=== PATIENT | male | born 2005 | race Caucasian/White ===

== ENCOUNTER 2025-08-01 00:12 | Emergency (ER) | payer OTHER, SELFPAY ==
--- NOTE | 2025-08-01 00:42 | DI.RAD.S_ITS ---
PROCEDURE: XR CHEST 2V INDICATIONS: chest pain TECHNIQUE: 2 views of the chest were acquired. COMPARISON: None. FINDINGS: Surgical changes and devices: None. Lungs and pleura: Lungs are clear. No pleural effusions or pneumothorax. Mediastinum: Mediastinal contours are normal. Heart size is normal. Bones and chest wall: No suspicious bony abnormalities. Soft tissues appear unremarkable. IMPRESSION: No acute cardiopulmonary abnormality is seen. Approved by: Georgette Constantino M.D.,Ph.D. on 08/01/2025 at 1:11
[2025-08-01 01:15] VITALS: BP 134/76; PULSE 58; RESP 16; TEMP 36.7; O2SAT 98; BMI 27.1
--- NOTE | 2025-08-01 01:29 | ED.CHESTPAIN ---
HPI - Chest Pain General Chief Complaint: Chest Pain Stated Complaint: Chest pain, slight dizziness, SOB Time Seen by Provider: 08/01/25 00:18 Source: patient Mode of arrival: Ambulatory Limitations: no limitations History of Present Illness HPI narrative: 19y M with no significant pmh hx presents with chest pain and sob while packing earlier this evening as [place] is getting [place] next [place]. He denies active chest, back, abd pain, sob, alas, diaphoresis, headache, dizziness. Chest pain has since subsided and he is pain free. He thinks he may be anxious at this time.Other than what is stated 14 pt ROS is negative. Related Data Allergies Allergy/AdvReac Type Severity Reaction Status Date / Time No Known Drug Allergies Allergy Verified 08/01/25 01:21 Review of Systems Review of Systems ROS Unobtainable: All systems reviewed & are unremarkable except as noted in HPI and below Exam Narrative Exam Narrative: GENERAL: [19] year old patient appears stated age. Well-developed patient, in mild distress. HEAD: Atraumatic. Normocephalic. EYES: Pupils equal round and reactive. Extraocular motions intact. No scleral icterus. No injection or drainage. ENT: Nose without bleeding, purulent drainage. Throat without erythema, tonsillar hypertrophy or exudate. Airway patent. NECK: Trachea midline. Non tender CARDIOVASCULAR: Regular rate and rhythm without murmurs, gallops, or rubs. RESPIRATORY: Clear to auscultation. Breath sounds equal bilaterally. No wheezes, rales, or rhonchi. GASTROINTESTINAL: Abdomen soft, non-tender, nondistended. EXTREMITIES: No edema or joint tenderness. BACK: Nontender without deformity or crepitance. No flank tenderness. NEURO: AOx3. SKIN: No rash or erythema of visible areas Initial Vital Signs Initial Vital Signs: Vital Signs Temperature 98.1 F 08/01/25 01:15 Pulse Rate 58 L 08/01/25 01:15 Respiratory Rate 16 08/01/25 01:15 Blood Pressure 134/76 08/01/25 01:15 Pulse Oximetry 98 08/01/25 01:15 Oxygen Delivery Method Room Air 08/01/25 01:15 Course Orders Ordered: ED Orders 08/01/25 00:42 CXR [XR chest 2V] Stat Vital Signs Vital signs: Vital Signs - 8 hr 08/01/25 01:15 Temperature 98.1 F Pulse Rate 58 L Respiratory Rate 16 Blood Pressure 134/76 Pulse Oximetry 98 Oxygen Delivery Method Room Air MDM - Chest Pain Imaging Data Chest x-ray: Radiologist's Impression: [address] [address] XRay Report Signed Patient: Giuliano Taylor MR#: [id number] : 2005 Acct:[id number] Age/Sex: 19 / M Date of Service: 08/01/25 Loc: ED Accession Number: [id number] Procedure: XR chest 2V Ordering Provider: Russell Springer D.O. PROCEDURE: XR CHEST 2V INDICATIONS: chest pain TECHNIQUE: 2 views of the chest were acquired. COMPARISON: None. FINDINGS: Surgical changes and devices: None. Lungs and pleura: Lungs are clear. No pleural effusions or pneumothorax. Mediastinum: Mediastinal contours are normal. Heart size is normal. Bones and chest wall: No suspicious bony abnormalities. Soft tissues appear unremarkable. IMPRESSION: No acute cardiopulmonary abnormality is seen. Approved by: Georgette Constantino M.D.,Ph.D. on 08/01/2025 at 1:11 [facility] Narrative Medical decision making narrative: All labwork, vital signs, technical coordinator note, medication list, previous ER visits and all imaging studies reviewed. CXR showed no acute process. Differential dx anxiety, chest wall pain, pneumothorax. Discharge Plan Departure Patient Disposition: Home Clinical Impression: Chest pain Instructions: DI for Chest Pain Activity Restrictions/Additional Instructions: Return with new or worsening symptoms. Follow up with PCP in 1-2 days if no improvement in symptoms. Referrals: Miscellaneous,[facility] [Primary Care Provider, Medical] Stand Alone Forms: Patient Portal/API
== END 2025-08-01 01:49 | disposition home or self-care (01) ==
PROVIDERS: Emergency Provider Family Medicine
DX: R07.9 Chest pain, unspecified (principal); R06.02 Shortness of breath
CPT/HCPCS: 71046; 99281; 99283